=== PATIENT | male | born 1945 | race Caucasian/White ===

== ENCOUNTER 2022-06-02 10:45 | Inpatient (IN) | payer OTHER ==
[~2022-06-02] VITALS: Ht 170.2 cm; Wt 94.7 kg
[2022-06-02] MEDS ORDERED: IOHEXOL 350 MG/ML 100 ML VIAL ONE (10:58)
[2022-06-02] MEDS ORDERED: SODIUM CHLORIDE 0.9% 100 ML ONE (10:58)
[2022-06-02 11:10] LABS: EOSINOPHILS % (AUTO) 2.7 % (1.0-6.0); HEMATOCRIT 42.3 % (41-53); HEMOGLOBIN 14.3 g/dL (13.5-17.5); LYMPHOCYTES # (AUTO) 1.2 K/uL (1.0-4.8); LYMPHOCYTES % (AUTO) 17.1 % (22.0-44.0); MEAN CORPUSCULAR HEMOGLOBIN 28.9 pg (26.0-34.0); MEAN CORPUSCULAR HGB CONC 33.8 G/dL (31.0-37.0); MEAN CORPUSCULAR VOLUME 85 fL (80-100); MONOCYTES # (AUTO) 0.4 K/uL (0.1-1.0); MONOCYTES % (AUTO) 5.7 % (2.0-9.0); NEUTROPHILS # (AUTO) 5.1 K/uL (1.8-7.7); NEUTROPHILS % (AUTO) 72.5 % (40.0-70.0); PLATELET COUNT (AUTO) 213 K/uL (150-450); RED BLOOD CELL COUNT(AUTO) 4.96 MIL/uL (4.50-5.90); RED CELL DISTRIBUTION WIDTH 14.7 % (11.5-14.5)
[2022-06-02] MEDS ORDERED: LORazepam 2 MG/ML VIAL IVP ONE (11:15)
[2022-06-02 11:20] LABS: ANION GAP 11 mmol/L (8-16); CALCIUM, TOTAL 9.1 mg/dL (8.8-10.5); CARBON DIOXIDE 27 mmol/L (22-29); CHLORIDE 100 mmol/L (98-107); GLOMERULAR FILTR. RATE CALC > 60 mL/min (>60); GLUCOSE,RANDOM 154 mg/dL (70-110); POTASSIUM 3.9 mmol/L (3.5-5.1); SODIUM SERUM 138 mmol/L (136-145); UREA NITROGEN, BLOOD 13 mg/dL (7-18)
[2022-06-02 11:24] LABS: PROTHROMBIN TIME 10.4 SEC (9.4-11.6)
[2022-06-02 11:35] LABS: ALANINE AMINOTRANSFERASE 17 U/L (12-78); ALBUMIN 3.8 g/dL (3.4-5.0); ALKALINE PHOSPHATASE 95 U/L (46-116); ASPARTATE AMINOTRANSFERASE 15 U/L (15-37); BILIRUBIN,TOTAL 0.7 mg/dL (0.1-1.0); TOTAL PROTEIN, SERUM 7.2 g/dL (6.4-8.2)
[2022-06-02] MEDS ORDERED: BISACODYL 10 MG RECTAL RECTAL SUPPOSITORY PR PRN (12:30)
[2022-06-02] MEDS ORDERED: LORazepam 2 MG/ML VIAL IVP PRN (12:30)
[2022-06-02] MEDS ORDERED: ONDANSETRON HCL 4 MG/2 ML VIAL IVP PRN (12:30)
[2022-06-02] MEDS: LevETIRAcetam 500 MG in DEXTROSE 5%-WATER 100 ML IV SCH (14:30)
[2022-06-02 15:15] LABS: APPEARANCE,URINE CLEAR (CLEAR); BILIRUBIN,URINE NEGATIVE (NEGATIVE); GLUCOSE, URINE (UA) NEGATIVE (NEGATIVE); KETONES,URINE NEGATIVE (NEGATIVE); LEUKOCYTE ESTERASE ,URINE NEGATIVE (NEGATIVE); NITRATE,URINE NEGATIVE (NEGATIVE); OCCULT BLOOD,URINE NEGATIVE (NEGATIVE); PH,URINE 5.5 (5.0-8.0); PROTEIN,URINE 100-200,SEE CONFIRM mg/dL (NEGATIVE); UROBILINOGEN,URINE <=1.0 mg/dL (<=1.0)
[2022-06-02 15:21] LABS: AMPHET/METH SCREEN,URINE NEGATIVE (NEGATIVE); BARBITURATE SCREEN, URINE NEGATIVE (NEGATIVE); BENZODIAZEPINES SCREEN,URINE NEGATIVE (NEGATIVE); CANNABINOID SCREEN,URINE NEGATIVE (NEGATIVE); COCAINE SCREEN,URINE NEGATIVE (NEGATIVE); METHADONE SCREEN, URINE NEGATIVE (NEGATIVE); OPIATE SCREEN,URINE NEGATIVE (NEGATIVE)
[2022-06-02 15:25] LABS: SPECIFIC GRAVITIY, URINE > 1.050 (1.003-1.030)
[2022-06-02 15:28] LABS: SULFOSALICYLIC ACID,URINE 3+ (Negative)
[2022-06-02 15:29] LABS: PHENCYCLIDINE SCREEN,URINE NEGATIVE (NEGATIVE)
[2022-06-02 15:30] LABS: COVID AG,FIA SOURCE NASAL SWAB
[2022-06-02 15:34] LABS: BACTERIA,URINE None Seen /HPF (None Seen); RBC,URINE None Seen /HPF (0-2); WBC,URINE 0-2 /HPF (0-5)
[2022-06-02] MEDS: HEPARIN SODIUM,PORCINE 5,000 UNITS/ML VIAL SQ SCH (16:58)
[2022-06-02 20:18] VITALS: BP 156/82
[2022-06-03] MEDS: HEPARIN SODIUM,PORCINE 5,000 UNITS/ML VIAL SQ SCH ×4 (00:15→23:14)
[2022-06-03 00:45] VITALS: BP 122/74
[2022-06-03] MEDS: LevETIRAcetam 500 MG in DEXTROSE 5%-WATER 100 ML IV SCH ×2 (02:42→14:25)
[2022-06-03 04:04] VITALS: BP 157/87
[2022-06-03 08:11] VITALS: BP 142/76
[2022-06-03] MEDS: PANTOPRAZOLE SODIUM 40 MG/VIAL IVP SCH (09:07)
[2022-06-03 11:44] VITALS: BP_SYST 146; BP_SYST 86; BP_DIAS 86
[2022-06-03 14:57] VITALS: BP 153/85
[2022-06-03 20:15] VITALS: BP 136/72
[2022-06-03] MEDS: ACETAMINOPHEN 325 MG TABLET PO PRN (23:14)
[2022-06-04 00:24] VITALS: BP 139/91
[2022-06-04] MEDS: LevETIRAcetam 500 MG in DEXTROSE 5%-WATER 100 ML IV SCH (02:00)
[2022-06-04 04:24] VITALS: BP 150/49
[2022-06-04 07:56] VITALS: BP 177/100
[2022-06-04] MEDS: AmLODIPine BESYLATE 10 MG TABLET PO SCH (08:45)
[2022-06-04] MEDS: PANTOPRAZOLE SODIUM 40 MG/VIAL IVP SCH (08:45)
[2022-06-04] MEDS: HEPARIN SODIUM,PORCINE 5,000 UNITS/ML VIAL SQ SCH ×3 (08:46→23:01)
[2022-06-04] MEDS ORDERED: LevETIRAcetam 500 MG TABLET PO SCH (09:00)
[2022-06-04] MEDS ORDERED: METF-1211 PO (09:40)
[2022-06-04] MEDS ORDERED: APIX5TAB PO (09:40)
[2022-06-04] MEDS ORDERED: INSU100V SQ (09:40)
[2022-06-04] MEDS ORDERED: HYDR50TA36 PO (09:40)
[2022-06-04] MEDS ORDERED: LEVE500T20 PO (09:40)
[2022-06-04] MEDS ORDERED: AMLO-257 PO (09:40)
[2022-06-04] MEDS ORDERED: AMIT-166 PO (09:40)
[2022-06-04] MEDS ORDERED: LISI-894 PO (09:40)
[2022-06-04] MEDS ORDERED: METO25 PO (09:40)
[2022-06-04] MEDS ORDERED: TAMS-13 PO (09:40)
[2022-06-04] MEDS ORDERED: ASPI-1444 PO (09:40)
[2022-06-04] MEDS ORDERED: ATOR40TA28 PO (09:40)
[2022-06-04] MEDS: ACETAMINOPHEN 325 MG TABLET PO PRN ×2 (10:37→20:06)
[2022-06-04 11:29] VITALS: BP 141/74
[2022-06-04] MEDS: ASPIRIN 81 MG CHEWABLE TABLET PO SCH (13:21)
[2022-06-04 15:18] VITALS: BP 122/71
[2022-06-04] MEDS: LevETIRAcetam 500 MG TABLET PO SCH (20:06)
[2022-06-04] MEDS: TAMSULOSIN HCL 0.4 MG CAPSULE PO SCH (20:06)
[2022-06-04] MEDS: ATORVASTATIN CALCIUM 20 MG TABLET PO SCH (20:06)
[2022-06-04 20:35] VITALS: BP 111/66
[2022-06-05 04:34] VITALS: BP 143/87
[2022-06-05 08:02] VITALS: BP 139/90
[2022-06-05] MEDS: AmLODIPine BESYLATE 10 MG TABLET PO SCH (08:16)
[2022-06-05] MEDS: ASPIRIN 81 MG CHEWABLE TABLET PO SCH (08:16)
[2022-06-05] MEDS: HEPARIN SODIUM,PORCINE 5,000 UNITS/ML VIAL SQ SCH ×2 (08:16→17:03)
[2022-06-05] MEDS: LevETIRAcetam 500 MG TABLET PO SCH ×2 (08:17→20:33)
[2022-06-05] MEDS: PANTOPRAZOLE SODIUM 40 MG/VIAL IVP SCH ×2 (08:19→10:30)
[2022-06-05 12:11] VITALS: BP 130/78
[2022-06-05] MEDS: ACETAMINOPHEN 325 MG TABLET PO PRN (14:54)
[2022-06-05] MEDS ORDERED: PANT40TA54 PO (15:43)
[2022-06-05] MEDS ORDERED: AMLO10TA55 PO (15:43)
[2022-06-05 16:03] VITALS: BP 145/85
[2022-06-05 20:02] VITALS: BP 124/62
[2022-06-05] MEDS: ATORVASTATIN CALCIUM 20 MG TABLET PO SCH (20:33)
[2022-06-05] MEDS: TAMSULOSIN HCL 0.4 MG CAPSULE PO SCH (20:33)
[2022-06-05 23:23] VITALS: BP 125/74
[2022-06-06] MEDS: HEPARIN SODIUM,PORCINE 5,000 UNITS/ML VIAL SQ SCH ×4 (00:34→23:19)
[2022-06-06 04:11] VITALS: BP 153/86
[2022-06-06 07:30] VITALS: BP 138/96
[2022-06-06] MEDS: AmLODIPine BESYLATE 10 MG TABLET PO SCH (07:55)
[2022-06-06] MEDS: ASPIRIN 81 MG CHEWABLE TABLET PO SCH (07:55)
[2022-06-06] MEDS: LevETIRAcetam 500 MG TABLET PO SCH ×2 (07:55→19:47)
[2022-06-06] MEDS: PANTOPRAZOLE SODIUM 40 MG/VIAL IVP SCH (08:16)
[2022-06-06 09:33] LABS: BASOPHILS % (AUTO) 1.5 % (0.0-2.0); HEMATOCRIT 41.1 % (41-53); HEMOGLOBIN 13.5 g/dL (13.5-17.5); LYMPHOCYTES # (AUTO) 1.3 K/uL (1.0-4.8); MEAN CORPUSCULAR VOLUME 88 fL (80-100); MONOCYTES # (AUTO) 0.4 K/uL (0.1-1.0); MONOCYTES % (AUTO) 8.1 % (2.0-9.0); NEUTROPHILS # (AUTO) 3.3 K/uL (1.8-7.7); NEUTROPHILS % (AUTO) 61.4 % (40.0-70.0); PLATELET COUNT (AUTO) 194 K/uL (150-450); RED BLOOD CELL COUNT(AUTO) 4.67 MIL/uL (4.50-5.90); RED CELL DISTRIBUTION WIDTH 14.8 % (11.5-14.5)
[2022-06-06 09:39] LABS: ANION GAP 9 mmol/L (8-16); CALCIUM, TOTAL 9.1 mg/dL (8.8-10.5); CARBON DIOXIDE 26 mmol/L (22-29); CHLORIDE 102 mmol/L (98-107); CREATININE 1.16 mg/dL (0.60-1.30); GLUCOSE,RANDOM 242 mg/dL (70-110); POTASSIUM 4.2 mmol/L (3.5-5.1); SODIUM SERUM 137 mmol/L (136-145); UREA NITROGEN, BLOOD 15 mg/dL (7-18)
[2022-06-06 09:41] LABS: GLOMERULAR FILTR. RATE CALC > 60 mL/min (>60)
[2022-06-06 16:00] VITALS: BP 155/91
[2022-06-06 19:20] VITALS: BP 135/87
[2022-06-06] MEDS: ATORVASTATIN CALCIUM 20 MG TABLET PO SCH (19:47)
[2022-06-06] MEDS: TAMSULOSIN HCL 0.4 MG CAPSULE PO SCH (19:47)
[2022-06-07 04:35] VITALS: BP 128/96
[2022-06-07] MEDS: ASPIRIN 81 MG CHEWABLE TABLET PO SCH (07:58)
[2022-06-07] MEDS: HEPARIN SODIUM,PORCINE 5,000 UNITS/ML VIAL SQ SCH ×3 (07:59→23:25)
[2022-06-07] MEDS: LevETIRAcetam 500 MG TABLET PO SCH ×2 (07:59→20:09)
[2022-06-07] MEDS: PANTOPRAZOLE SODIUM 40 MG/VIAL IVP SCH (07:59)
[2022-06-07] MEDS: AmLODIPine BESYLATE 10 MG TABLET PO SCH (08:00)
[2022-06-07 08:11] VITALS: BP 144/74
[2022-06-07 15:56] VITALS: BP 122/71
[2022-06-07] MEDS: ACETAMINOPHEN 325 MG TABLET PO PRN ×2 (17:42→21:38)
[2022-06-07 19:40] VITALS: BP 104/64
[2022-06-07] MEDS: TAMSULOSIN HCL 0.4 MG CAPSULE PO SCH (20:09)
[2022-06-07] MEDS: ATORVASTATIN CALCIUM 20 MG TABLET PO SCH (20:09)
[2022-06-08 04:10] VITALS: BP 152/59
[2022-06-08 07:11] VITALS: BP 99/54
[2022-06-08] MEDS: AmLODIPine BESYLATE 10 MG TABLET PO SCH (09:00)
[2022-06-08] MEDS: LevETIRAcetam 500 MG TABLET PO SCH (09:03)
[2022-06-08] MEDS: PANTOPRAZOLE SODIUM 40 MG/VIAL IVP SCH (09:04)
[2022-06-08] MEDS: ASPIRIN 81 MG CHEWABLE TABLET PO SCH (09:04)
[2022-06-08] MEDS: HEPARIN SODIUM,PORCINE 5,000 UNITS/ML VIAL SQ SCH (09:04)
== END 2022-06-08 14:35 | DRG 101 ==
LOC: EMS 10:49 → 5S 18:28 → 6S 06-06 18:50
PROVIDERS: ADMIT Internal Medicine; ATTEND Internal Medicine
DX: R56.9 Unspecified convulsions (principal); I10 Essential (primary) hypertension; E66.9 Obesity, unspecified; Z20.822 Contact with and (suspected) exposure to COVID-19; I48.91 Unspecified atrial fibrillation; Z86.73 Personal history of transient ischemic attack (TIA), and cerebral infarction without residual deficits; Z68.32 Body mass index [BMI] 32.0-32.9, adult
CPT/HCPCS: 70496; 70498; 71045; 80048; 80053; 81001; 81002; 82948; 84484; 85025; 85610; 85730; 86850; 86900; 86901; 92610; 93005; 93306; 97110; 97112; 97116; 97162; 97166; 97535; 99291; C9113; G0378; J0712; J1644; J2060; J7050; J7060; Q9967; 36415-L1; 36415-TC; 70450; 70450-TC